=== PATIENT | male | born 1975 | race Caucasian/White ===

== ENCOUNTER 2018-08-10 21:42 | Emergency (ER) | payer SELFPAY ==
[~2018-08-10] VITALS: Ht 172.7 cm; Wt 127.5 kg
--- NOTE | 2018-08-10 22:05 | NUR ---
PT BIBRA. C/O "ETOH FROM HOME X2 HRS" -SOB. -ACUTE DISTRESS. -N/V -DIZZINESS. PT RESTING
--- NOTE | 2018-08-10 22:30 | NUR ---
CALLED HIS MOTHER, TERRI, AT [phone] TO COME PICK HIM UP. LEFT A MESSAGE ON HER VOICEMAIL.
--- NOTE | 2018-08-11 02:02 | NUR ---
Patient is resting comfortably in bed with eyes closed. Easily aroused. VSS
[2018-08-11 04:02] VITALS: BP 155/88
== END 2018-08-11 04:02 | disposition home or self-care (01) ==
LOC: ER 21:44
DX: F10.10 Alcohol abuse, uncomplicated (principal); E11.9 Type 2 diabetes mellitus without complications; Y90.9 Presence of alcohol in blood, level not specified
CPT/HCPCS: 82962-TC